=== PATIENT | male | born 1990 | race Caucasian/White ===

== ENCOUNTER 2020-12-28 07:48 | Emergency (ER) | payer BC ==
[2020-12-28 08:46] LABS: HEMOGLOBIN 15.7 gm/dl (14.0-17.5); RED BLOOD COUNT 5.15 M/UL (4.20-5.50); WHITE BLOOD COUNT 5.3 K/UL (4.5-11.0)
[2020-12-28 09:26] LABS: BUN/CREATININE RATIO 12 (0-10)
== END 2020-12-28 11:00 | disposition home or self-care (01) ==
LOC: ER1 07:48
PROVIDERS: Physician Assistant
DX: E86.0 Dehydration (principal); R00.2 Palpitations
CPT/HCPCS: 71045; 80053; 81001; 82550; 82553; 83874; 84484; 85025; 85379; 93005; 93242; 96374; 99284; J2405; J7030

== ENCOUNTER 2021-03-04 23:52 | Emergency (ER) | payer SELFPAY | END 2021-03-05 01:27 | disposition home or self-care (01) | LOC: ER1 23:52 | DX: R20.2 Paresthesia of skin (principal) | CPT/HCPCS: 99283 ==